=== PATIENT | female | born 1990 | race American Indian/Alaskan Native ===

== ENCOUNTER 2020-10-15 08:51 | Outpatient (CLI) | payer OTHER ==
[2020-10-15 10:05] VITALS: BP 113/62
[2020-10-15] MEDS ORDERED: LACTATED RINGERS 500 ML IV ONE (11:00)
[2020-10-15 11:03] LABS: Bacteria,Urine 1+ /HPF (Negative); Bilirubin,Urine NEG (Negative); Blood,Urine NEG (Negative); Color,Urine Yellow (Yellow); Mucus,Urine 1+ /HPF; Protein,Urine <15 mg/dL mg/dL (Negative); Urobilinogen,Urine < 2.0 mg/dL (<2.0)
[2020-10-15] MEDS ORDERED: LIDOCAINE-MPF (1%) 10 MG/1 ML VIAL 5 ML INFILTRATI ONE (12:30)
== END 2020-10-15 12:35 | disposition home or self-care (01) ==
LOC: TRG 08:51 → APU 08:53 → TRG 12:35
DX: O42.913 Preterm premature rupture of membranes, unspecified as to length of time between rupture and onset of labor, third trimester (principal); O47.03 False labor before 37 completed weeks of gestation, third trimester; O24.419 Gestational diabetes mellitus in pregnancy, unspecified control; Z3A.28 28 weeks gestation of pregnancy
CPT/HCPCS: 36415; 59025; 81001; 84112; 87076; 87086; 87186; 96372; J0696

== ENCOUNTER 2020-12-07 01:03 | Outpatient (CLI) | payer OTHER ==
[2020-12-07 03:07] VITALS: BP 123/71
== END 2020-12-07 03:20 | disposition home or self-care (01) ==
LOC: TRG 01:03 → APU 01:20 → TRG 03:20
PROVIDERS: ATTEND Obstetrics & Gynecology
DX: O26.893 Other specified pregnancy related conditions, third trimester (principal); M79.89 Other specified soft tissue disorders; O24.419 Gestational diabetes mellitus in pregnancy, unspecified control; Z3A.35 35 weeks gestation of pregnancy
CPT/HCPCS: 59025; 81001; 96360; J7120

== ENCOUNTER 2020-12-22 01:51 | Outpatient (CLI) | payer OTHER ==
[2020-12-22 02:11] VITALS: BP 121/65
[2020-12-22] MEDS ORDERED: LACTATED RINGERS 1,000 ML IV ONE (02:37)
[2020-12-22] MEDS ORDERED: HYDROcodone/ACETAMINOPHEN 5-325 MG TAB PO ONE (04:56)
== END 2020-12-22 07:03 | disposition home or self-care (01) ==
LOC: TRG 01:51 → APU 01:52 → TRG 07:03
PROVIDERS: ATTEND Obstetrics & Gynecology
DX: Z34.93 Encounter for supervision of normal pregnancy, unspecified, third trimester (principal); Z3A.37 37 weeks gestation of pregnancy
CPT/HCPCS: 59025; J7120

== ENCOUNTER 2020-12-30 01:28 | Inpatient (IN) | payer OTHER ==
[2020-12-30] MEDS ORDERED: LACTATED RINGERS 2,000 ML ONE (01:40)
[2020-12-30] MEDS ORDERED: OXYTOCIN DRIP 30,000 MILLIUNITS/500 ML BAG IV ONE (01:40)
[2020-12-30] MEDS: LACTATED RINGERS 1,000 ML IV SCH ×2 (01:40→03:12)
[2020-12-30] MEDS ORDERED: ePHEDrine SULFATE 50 MG/1 ML INJ IV PRN ×2 (01:59→08:00)
[2020-12-30] MEDS ORDERED: LOPERAMIDE 2 MG CAP PO PRN (01:59)
[2020-12-30] MEDS ORDERED: LIDOCAINE (2%) 20 MG/1 ML VIAL 20 ML MDV INFILTRATI ONE ×2 (01:59→07:32)
[2020-12-30] MEDS ORDERED: fentaNYL 100 MCG/2 ML INJ IV PRN (01:59)
[2020-12-30] MEDS ORDERED: BUTORPHANOL 2 MG/1 ML INJ IV PRN (01:59)
[2020-12-30] MEDS ORDERED: MINERAL OIL 30 ML ORAL LIQD PO PRN (01:59)
[2020-12-30] MEDS ORDERED: OXYTOCIN 10 UNIT/1 ML INJ IM PRN (01:59)
[2020-12-30] MEDS ORDERED: miSOPROStol 200 MCG TAB PR PRN (01:59)
[2020-12-30] MEDS ORDERED: NalbUPHINE 10 MG/1 ML INJ IV PRN ×2 (01:59→09:00)
[2020-12-30] MEDS ORDERED: AMPICILLIN/NS 2 GM/100 ML 2 GM/100 ML BAG IV ONE (01:59)
[2020-12-30] MEDS ORDERED: ACETAMINOPHEN 325 MG TAB PO PRN ×2 (01:59→08:30)
[2020-12-30] MEDS ORDERED: TERBUTALINE 1 MG/1 ML INJ SUB-Q PRN (01:59)
[2020-12-30] MEDS ORDERED: CARBOPROST TROMETHAMINE 250 MCG/1 ML INJ IM PRN (01:59)
[2020-12-30] MEDS ORDERED: METHYLERGONOVINE MALEATE 0.2 MG/ML VIAL IM PRN (01:59)
[2020-12-30] MEDS ORDERED: OXYTOCIN DRIP 30 UNITS/500 ML BAG IV SCH ×2 (02:00)
[2020-12-30 03:18] LABS: Hematocrit 39.7 % (30.3-42.9); Hemoglobin 13.8 gm/dl (10.1-14.3); Mean Corpuscular HGB Conc 35 % (30-34); Mean Corpuscular Volume 86 fl (79-97); Red Blood Count 4.63 M/mm3 (3.65-5.03); Red Cell Distribution Width 16.2 % (13.2-15.2)
[2020-12-30 03:25] LABS: Platelet Count 124 K/mm3 (140-440)
[2020-12-30] MEDS ORDERED: AMPICILLIN/NS 1 GM/50 ML 1 GM/50 ML BAG IV SCH (04:00)
--- NOTE | 2020-12-30 04:30 | History and Physical Report ---
History of Present Illness Date of examination: 12/30/20 Date of admission: 12/30/20 01:59 Chief complaint: contractions History of present illness: 30-year-old at 38 weeks 6 days (NED 01/07/2021) complicated by obesity, history of Covid positivity with negative subsequent Covid test, LGA , polyhydramnios since resolved, gestational diabetes on glyburide 5 mg every morning, shortness of breath, status post pulmonary consult, history of thrombocytopenia, hx HSV seropositive presenting with contractions every 4 cm. After reviewing records patient noted to be 4 cm since at least 12/17/2020. Denies vaginal bleeding or leakage of fluid. Denies PIH symptoms. chart reviewed O+ antibody negative Hemoglobin hematocrit 13 and 38.8 Pap smear negative with positive HPV Rubella immune VDRL nonreactive Hemoglobin B surface antigen negative HIV negative Platelets 148,000 -> 107 -> 123 Varicella immune Hemoglobin electrophoresis AA GCCT negative Trichomonas negative AFP negative for OSB Maternity 21 neg 1 hour GTT 231 GBS pos Hx HSV seropositive Past History Past Medical History: diabetes (gestational), other (obesity) Past Surgical History: other (wisdom teeth, joint fluid aspiration) [employer] History: herpes (per chart review) Family/Genetic History: diabetes, hypertension Social history: no significant social history - Obstetrical History Expected Date of Delivery: 01/07/21 Actual Gestation: 38 Week(s) 6 Day(s) : 4 Para: 2 Hx # Term Pregnancies: 2 Spontaneous Abortions: 1 Number of Living Children: 2 Medications and Allergies Allergies Allergy/AdvReac Type Severity Reaction Status Date / Time No Known Allergies Allergy Unverified 10/15/20 10:09 Home Medications Medication Instructions Recorded Confirmed Last Taken Type glyBURIDE [Glyburide] 1.25 mg PO DAILY 12/30/20 12/30/20 1 Day Ago History ~12/29/20 1.25 MG Active Meds: Active Medications Acetaminophen (Acetaminophen 325 Mg Tab) 650 mg PO Q4H PRN PRN Reason: Pain, Mild (1-3) Butorphanol Tartrate (Butorphanol 2 Mg/1 Ml Inj) 2 mg IV Q2H PRN PRN Reason: Pain , Severe (7-10) Last Admin: 12/30/20 03:11 Dose: 2 mg Documented by: Carboprost Tromethamine (Carboprost Tromethamine 250 Mcg/1 Ml Inj) 250 mcg IM ONCE PRN PRN Reason: Uterine Bleeding Ephedrine Sulfate (Ephedrine Sulfate 50 Mg/1 Ml Inj) 10 mg IV Q2M PRN PRN Reason: Hypotension Fentanyl (Fentanyl 100 Mcg/2 Ml Inj) 100 mcg IV Q2H PRN PRN Reason: Pain,Severe (7-10) LABOR PAIN Oxytocin/Sodium Chloride (Pitocin/Ns 30 Unit/500ml) 30 units in 500 mls @ 2 mls/hr IV TITR DEEJAY; Protocol Lactated Ringer's (Lactated Ringers) 1,000 mls @ 125 mls/hr IV DIRECT DEEJAY Last Admin: 12/30/20 03:12 Dose: 125 mls/hr Documented by: Oxytocin/Sodium Chloride (Pitocin/Ns 30 Unit/500ml) 30 units in 500 mls @ 40 mls/hr IV TITR DEEJAY; Protocol Ampicillin Sodium (Ampicillin/Ns 1 Gm/50 Ml) 1 gm in 50 mls @ 100 mls/hr IV Q4H DEEJAY; Protocol Loperamide HCl (Loperamide 2 Mg Cap) 2 mg PO ONCE PRN PRN Reason: give with Hemabate Methylergonovine Maleate (Methylergonovine Maleate 0.2 Mg/Ml Vial) 0.2 mg IM ONCE PRN PRN Reason: Uterine Bleeding Mineral Oil (Mineral Oil 30 Ml Oral Liqd) 30 ml PO QHS PRN PRN Reason: Constipation Misoprostol (Misoprostol 200 Mcg Tab) 800 mcg FL ONCE PRN PRN Reason: Uterine Bleeding Nalbuphine HCl (Nalbuphine 10 Mg/1 Ml Inj) 10 mg IV Q2H PRN PRN Reason: Pain, Moderate (4-6) Oxytocin (Oxytocin 10 Unit/1 Ml Inj) 10 unit IM ONCE PRN PRN Reason: Uterine Bleeding Terbutaline Sulfate (Terbutaline 1 Mg/1 Ml Inj) 0.25 mg SUB-Q ONCE PRN PRN Reason: Hyperstimulation/Hypertonicity Review of Systems All systems: negative (expect HPI) - Vital Signs Vital signs: Vital Signs Pulse Pulse Ox 84 99 12/30/20 01:49 12/30/20 01:49 Temp Pulse Resp BP Pulse Ox 98.4 F 73 18 121/60 98 12/30/20 01:54 12/30/20 04:28 12/30/20 03:11 12/30/20 01:54 12/30/20 04:28 - Physical Exam Abdomen: Positive: normal appearance, soft, normal bowel sounds Genitourinary (Female): Positive: normal external genitalia Uterus: Positive: enlarged Extremities: Positive: normal - Obstetrical FHR: category 1 Uterine Contraction Monitor Mode: External Cervical Dilatation: 5 Uterine Contraction Pattern: Regular Results Result Diagrams: 12/30/20 01:52 Abnormal lab results 12/30/20 12/30/20 Range/Units 01:52 02:14 MCHC 35 H (30-34) % RDW 16.2 H (13.2-15.2) % Plt Count 124 L (140-440) K/mm3 POC Glucose 132 H (70-105) mg/dL All other labs normal. Assessment and Plan - Patient Problems (1) Gestational diabetes Current Visit: Yes Status: Acute Plan to address problem: Presenting with contractions found to be 4 cm however has a 4 cm since at least 12/17/2020. Question if patient is actually active labor. --Effective management for now --Ampicillin if evidence of active labor for GBS positive status --Need to obtain paper version of the chart --Monitor CBGs, on glyburide 5 mg every morning as outpatient --Anticipate if labors
[2020-12-30] MEDS ORDERED: NALOXONE 2 MG/2 ML INJ IV PRN (07:12)
[2020-12-30] MEDS ORDERED: LACTATED RINGERS 250 ML IV SOLN IV ONE (07:12)
[2020-12-30] MEDS ORDERED: ONDANSETRON 4 MG/2 ML INJ IV PRN ×2 (07:12→08:01)
--- NOTE | 2020-12-30 07:14 | Anesthesia Consultation ---
Anesthesia Consult and Med Hx Date of service: 12/30/20 - Airway Anesthetic Teeth Evaluation: Good ROM Head & Neck: Adequate Mental/Hyoid Distance: Adequate Mallampati Class: Class III Intubation Access Assessment: Possibly Difficult - Pulmonary Exam CTA: Yes - Cardiac Exam Cardiac Exam: RRR - Pre-Operative Health Status ASA Pre-Surgery Classification: ASA2 Proposed Anesthetic Plan: Epidural - Pulmonary Hx Smoking: No Hx Asthma: No COPD: No Hx Pneumonia: No Hx Sleep Apnea: No - Cardiovascular System Hx Hypertension: No Hx Heart Attack/AMI: No Hx Angina: No - Central Nervous System Hx Seizures: No Hx Psychiatric Problems: No - Endocrine Hx Renal Disease: No Hx End Stage Renal Disease: No Hx Liver Disease: No Hx Insulin Dependent Diabetes: No Hx Non-Insulin Dependent Diabetes: No Hx Hypothyroidism: No Hx Hyperthyroidism: No - Hematic Hx Anemia: Yes (on iron) Hx Sickle Cell Disease: No - Other Systems Hx Alcohol Use: No Hx Obesity: Yes
--- NOTE | 2020-12-30 07:17 | Progress Note ---
Labor Epidural - Labor Epidural Start Time: 06:45 Stop Time: 07:05 Performed by:: DIONI CHANDLER Procedure: Patient is requesting epidural for labor and pain. H&P, labs were reviewed. Patient IDed, H&P reviewed, all questions and concerns were answered, and consent was signed. Timeout was performed at bedside. Patient in sitting position. Sterile prep and drape was performed. 3ml of 1% lidocaine skin wheal at L[3]- L [4]. 18-gauge hustead epidural needle was advanced to loss of resistance with air technique 8cm. Negative CSF negative blood. Epidural catheter advanced to [15] centimeters. [positive] Aspiration [positive] test dose. 3ml of 1% lidocaine skin wheal at L[2]- L [3]. 18-gauge hustead epidural needle was advanced to loss of resistance with air technique 8cm. Negative CSF negative blood. Epidural catheter advanced to [15] centimeters. [negative] Aspiration [negative] test dose.Sterile dressing applied. Patient tolerated procedure.
--- NOTE | 2020-12-30 07:52 | Procedure Note ---
OB Delivery Note - Delivery Date of Delivery: 12/30/20 Pharmaceutical Sales Representative: JOSE HOWE Estimated blood loss: <100cc - Vaginal Delivery presentation: vertex Delivery position: OA (CELESTINE) Delivery monitor: external FHT, external uterine Route of delivery: Delivery placenta: spontaneous Delivery cord: 3 umbilical vessels Episiotomy: none Anesthesia: epidural Delivery comments: Called to room by nursing staff, BBOW (clear fluid) outside of vagina and pt with strng urge to push. Pt birthed female infant encaul, membranes cleared from baby's face and placed skin to skin on maternal abdomen. 3 vessel cord clamped and cut after cessation of pulsation. Placenta delivered intact and complete. no lacerations to repair. Lochia scant, fundus firm. Mother and baby LDR stable. All counts correct. wt 8#14, apgars 8/9. Dr. Bustamante aware. - A at 1 minute: 8 at 5 minutes: 9 Gender: Female (8#14)
[2020-12-30] MEDS ORDERED: fentaNYL-BUPIV 2 MCG/ML-0.125% 200 MCG/100 ML BAG EPIDURAL SCH (08:00)
[2020-12-30] MEDS ORDERED: diphenhydrAMINE 50 MG/ML VIAL IV PRN (08:00)
[2020-12-30] MEDS ORDERED: LACTATED RINGERS 1,000 ML IV SCH (08:15)
[2020-12-30] MEDS ORDERED: diphenhydrAMINE 25 MG CAP PO PRN (09:00)
[2020-12-30] MEDS ORDERED: PROMETHAZINE 25 MG RECT SUPP PR PRN (09:00)
[2020-12-30] MEDS ORDERED: LANOLIN/ZINC/DIMETHICONE (LANSINOH) 7 GM TP PRN (09:00)
[2020-12-30] MEDS ORDERED: HYDROcodone/ACETAMINOPHEN 5-325 MG TAB PO PRN (09:00)
[2020-12-30] MEDS ORDERED: WITCH HAZEL/ GLYCERIN PAD TP PRN (09:00)
[2020-12-30] MEDS ORDERED: PROMETHAZINE 25 MG TAB PO PRN (09:00)
[2020-12-30] MEDS: IBUPROFEN 600 MG TAB PO SCH ×3 (09:12→21:03)
[2020-12-30] MEDS: glyBURIDE 5 MG TAB PO SCH ×2 (09:12→18:23)
[2020-12-30] MEDS ORDERED: MORPHINE 4 MG/1 ML INJ IV PRN (10:00)
[2020-12-30 15:40] LABS: Hematocrit 37.3 % (30.3-42.9); Hemoglobin 12.8 gm/dl (10.1-14.3)
--- NOTE | 2020-12-30 20:44 | Post Anesthesia Evaluation ---
- Post Anesthesia Evaluation Patient Participated: Yes Airway Patent: Yes Stable Respiratory Function: Yes Nausea/Vomiting: No Temp > 96.8F: Yes Pain Manageable: Yes Adequeate Hydration: Yes Anesthesia Complications: No Block Receding Appropriately: Yes Patient on Ventilator: No
[2020-12-30] MEDS ORDERED: MAGNESIUM HYDROXIDE (MOM) ORAL LIQD UDC PO PRN (22:00)
[2020-12-31] MEDS: IBUPROFEN 600 MG TAB PO SCH ×2 (05:40→21:40)
[2020-12-31] MEDS: glyBURIDE 5 MG TAB PO SCH (09:00)
--- NOTE | 2020-12-31 09:45 | Progress Note ---
Assessment and Plan A: S/P Pos covid 19 P: Continue rouitne care D/C home tomm if stable Subjective - Subjective Date of service: 12/31/20 Principal diagnosis: s/p with pos covid Patient reports: appetite normal, voiding normally, pain well controlled, ambulating normally [place] [facility]: doing well, nursing well Objective - Vital Signs Latest vital signs: Vital Signs Temp Pulse Resp BP BP Pulse Ox Pulse Ox 12/31/20 06:40 18 12/31/20 05:40 18 12/31/20 04:22 98.2 F 75 18 122/63 97 12/31/20 00:26 98.5 F 71 18 124/64 99 12/30/20 22:03 18 12/30/20 21:06 98.4 F 80 18 123/59 99 12/30/20 21:03 18 12/30/20 20:00 100 12/30/20 15:38 98.2 F 140 H 18 114/76 99 12/30/20 15:31 76 97 12/30/20 10:56 96 12/30/20 10:52 98.5 F 73 18 110/63 96 12/30/20 10:12 18 Intake and Output 12/30/20 12/31/20 12/31/20 22:59 06:59 14:59 Intake Total 250 240 Output Total 350 Balance -100 240 Intake: IV 10 Right Hand 10 Oral 240 240 Output: Urine 350 Void 350 Other: Total, Intake Amount 240 240 Total, Output Amount 350 # Voids Void 1 - Exam Breasts: Present: normal Lungs: Present: Clear to auscultation Abdomen: Present: normal appearance, soft, normal bowel sounds Vulva: both: normal Uterus: Present: normal, firm, fundal height below umbilicus Extremities: Present: normal - Labs Labs: Abnormal lab results 12/30/20 Range/Units Unknown Coronavirus (PCR) Positive A (Negative)
[2021-01-01] MEDS: IBUPROFEN 600 MG TAB PO SCH (03:55)
--- NOTE | 2021-01-01 09:23 | Discharge Summary ---
Providers - Providers Date of Admission: 12/30/20 01:59 Date of discharge: 01/01/21 Attending physician: REMA TAPIA JR, MD Primary care physician: TAMI PABON Hospitalization Reason for admission: active labor, IUP at term Delivery: Episiotomy: none Laceration: none Other procedures: none complications: other (pos covid) Discharge diagnosis: IUP at term delivered (thrombocytopenia) baby: female Hospital course: Pt was admitted to [facility] and had a . She has a hx of thrombocytopenia and pos covid. Pt dev no pp complications and was d/c'd home per Dr Ames. See H&P, delivery summary, and pp notes. Condition at discharge: Stable Disposition: 01 HOME / SELF CARE / HOMELESS Plan - Discharge Medications Prescriptions: Ibuprofen [Motrin 600 MG tab] 600 mg PO Q6H PRN #30 tablet PRN Reason: Menstrual Cramps - Provider Discharge Summary Activity: routine, no sex for 6 weeks, no heavy lifting 4 weeks, no strenuous exercise Diet: routine Instructions: routine Additional instructions: [] Smoking cessation referral if applicable(refer to patient education folder for contact #) [] Refer to [facility]'s [facility] Booklet Call your doctor immediately for: * Fever > 100.5 * Heavy vaginal bleeding ( >1 pad per hour) * Severe persistent headache * Shortness of breath * Reddened, hot, painful area to leg or breast * Drainage or odor from incision. * Keep incision clean and dry at all times and follow doctor's instructions regarding bathing/showering - Follow up plan Follow up: TAMI PABON MD [Primary Care Provider] - 6 Weeks Forms: [facility] Discharge Summary
[2021-01-01 09:54] LABS: Basophils % (Auto) 0.3 % (0.0-1.8); Eosinophils # (Auto) 0.2 K/mm3 (0.0-0.4); Hematocrit 37.7 % (30.3-42.9); Hemoglobin 12.6 gm/dl (10.1-14.3); Lymphocytes # (Auto) 1.6 K/mm3 (1.2-5.4); Lymphocytes % (Auto) 25.3 % (13.4-35.0); Mean Corpuscular HGB Conc 33 % (30-34); Mean Corpuscular Volume 86 fl (79-97); Monocytes # (Auto) 0.6 K/mm3 (0.0-0.8); Monocytes % (Auto) 9.5 % (0.0-7.3); Platelet Count 122 K/mm3 (140-440); Red Blood Count 4.39 M/mm3 (3.65-5.03); Red Cell Distribution Width 15.6 % (13.2-15.2)
[2021-01-01 16:54] VITALS: BP 123/72
== END 2021-01-01 17:00 | disposition home or self-care (01) | DRG 805 ==
LOC: TRG 01:28 → APU 01:29 → LD 01:59 → TRG 01:59 → OB 10:44
PROVIDERS: ADMIT Obstetrics & Gynecology; ATTEND Obstetrics & Gynecology
PROC: 10E0XZZ Delivery of Products of Conception, External Approach (ICD-10-PCS; principal; 2020-12-30)
PROC: 3E0R3BZ Introduction of Anesthetic Agent into Spinal Canal, Percutaneous Approach (ICD-10-PCS; 2020-12-30)
PROC: 00HU33Z Insertion of Infusion Device into Spinal Canal, Percutaneous Approach (ICD-10-PCS; 2020-12-30)
DX: O24.429 Gestational diabetes mellitus in childbirth, unspecified control (principal); U07.1 COVID-19; Z37.0 Single live birth; O98.52 Other viral diseases complicating childbirth; O99.12 Other diseases of the blood and blood-forming organs and certain disorders involving the immune mechanism complicating childbirth; Z3A.38 38 weeks gestation of pregnancy; O99.214 Obesity complicating childbirth; O99.02 Anemia complicating childbirth; D64.9 Anemia, unspecified; D69.6 Thrombocytopenia, unspecified; Z86.16 Personal history of COVID-19
CPT/HCPCS: 36415; 82962; 85014; 85018; 85025; 85027; 86592; 86850; 86900; 86901; 96360; 96361; 96365; 96366; 99211; G0378; G0463; J0290; J0595; J2270; J2590; J7120; U0003